=== PATIENT | male | born 2005 | race Caucasian/White ===

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

== ENCOUNTER 2023-05-25 09:42 | Emergency (ER) | payer MEDICAID, SELFPAY ==
[2023-05-25 09:51] VITALS: BP 143/93; PULSE 49; RESP 18; TEMP 36.7; O2SAT 97; BMI 22.8
--- NOTE | 2023-05-25 10:08 | XRR_ITS ---
PROCEDURE INFORMATION: Exam: XR Lumbosacral Spine Exam date and time: 05/25/2023 10:17 AM Age: 17 years old Clinical indication: Injury or trauma; Fall; Blunt trauma (contusions or hematomas); Additional info: Fall with low back pain TECHNIQUE: Imaging protocol: Radiologic exam of the lumbosacral spine. Views: 2 or 3 views. COMPARISON: No relevant prior studies available. FINDINGS: Bones/joints: Spinal alignment is normal. Vertebral body height is maintained. Intervertebral disc height is maintained. There are prominent posterior vertebral osteophytes at the inferior endplate of L4. The inferior endplate of L4 is mildly irregular. Question L4 inferior endplate fracture. Facet joints are normal. There is smooth linear lucency through the posterosuperior margin of the S1 spinous process. Soft tissues: Unremarkable. XR/XR lumbar spine 2-3V* [id number] IMPRESSION: 1. Irregularity of the L4 inferior endplate with prominent posterior vertebral osteophyte or posterior cortical retropulsion. Possible compression fracture of indeterminate age versus Schmorl's node and/or disc degeneration with osteophytes. Consider follow-up CT. 2. Smooth linear lucency through the superior margin of the S1 spinous process. Probable accessory ossification center versus acute fracture. Correlate with the location of tenderness. Consider follow-up CT.
--- NOTE | 2023-05-25 10:08 | XRR_ITS ---
PROCEDURE INFORMATION: Exam: XR Sacrum and Coccyx, 2 or More Views Exam date and time: 05/25/2023 10:17 AM Age: 17 years old Clinical indication: Injury or trauma; Fall; Blunt trauma (contusions or hematomas); Injury date: 5n days ago; Additional info: Fall with tailbone pain TECHNIQUE: Imaging protocol: XR of the sacrum and coccyx, 2 or more views. COMPARISON: No relevant prior studies available. FINDINGS: Bones/joints: Sacrum is intact. SI joints are normal. The visible portions of the lower lumbar spine and pelvis are unremarkable. The coccyx is unremarkable. Soft tissues: Visible soft tissues are unremarkable. XR/XR sacrum coccyx min 2V [id number] IMPRESSION: No acute findings.
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
[2023-05-25] MEDS: ketorolac 60 mg/2 mL INJ IM (10:31)
[2023-05-25] MEDS: methocarbamol 750 mg Tablet PO (10:31)
--- NOTE | 2023-05-25 10:54 | CTR_ITS ---
PROCEDURE INFORMATION: Exam: CT Lumbar Spine Without Contrast Exam date and time: 05/25/2023 11:00 AM Age: 17 years old Clinical indication: Pain and injury or trauma; Fall; Blunt trauma (contusions or hematomas); Low back pain; Injury date: 5 days ago; Additional info: Low back pain and tailbone pain after fall, please include the sacrum on imaging TECHNIQUE: Imaging protocol: Computed tomography of the lumbar spine without contrast. Radiation optimization: All CT scans at this facility use at least one of these dose optimization techniques: automated exposure control; mA and/or kV adjustment per patient size (includes targeted exams where dose is matched to clinical indication); or iterative reconstruction. REPORTING DATA: Count of CT and Cardiac NM exams in prior 12 months: This patient has received 0 known CTs and 0 known cardiac nuclear medicine studies in the 12 months prior to the current study. COMPARISON: CR (PELVIS, ) 05/25/2023 10:17 AM RADIATION DOSE METRICS: Total DLP (mGy-cm): 544.5 FINDINGS: Bones/joints: Spinal alignment is normal. Vertebral body height is maintained. No acute fracture. Severe spinal stenosis at L4-L5. There is a Schmorl's node at the posterior aspect of the inferior endplate of L4. There is an osteophyte at the posterior margin of the inferior L4 endplate which extends 9 mm posteriorly, severely narrowing the spinal canal. There is associated generalized disc bulge at L4-L5. Intervertebral discs are normal at other levels. Facet joints are normal. There is lucency through the posterosuperior margin the S1 spinous process suggesting an accessory ossification center. Soft tissues: Paraspinal soft tissues are unremarkable. CT/CT lumbar spine wo con* [id number] IMPRESSION: 1. No acute fracture. 2. Accessory ossification center or less likely chronic fracture at the tip of the S1 spinous process. 3. Large posterior vertebral osteophyte at the inferior endplate of L4 associated with a disc bulge and Schmorl's node producing severe spinal canal stenosis.
[2023-05-25 11:38] VITALS: BP 132/78; PULSE 54; RESP 14; O2SAT 100
--- NOTE | 2023-05-26 07:56 | DCPLANNER ---
Addendum entered by Elida Vieyra 06/27/23 10:41: Patient did attend appointment Addendum entered by Elida Vieyra 05/27/23 15:14: Patient has a follow up appointment scheduled for June at 10:[address] Duran at ortho. Original Note: verification manager had message to schedule a follow up appointment for patient with ortho. verification manager sent patients information to the front office staff at ortho. Patients information will be printed and reviewed. Clinic will call patient with appointment information.
--- NOTE | 2023-05-26 11:28 | DCPLANNER ---
ar manager called patient due to no primary care physician - no answer at this time.
== END 2023-05-25 12:29 | disposition home or self-care (01) ==
PROVIDERS: Emergency Provider Physician Assistant
DX: M51.36 Other intervertebral disc degeneration, lumbar region (principal)
CPT/HCPCS: 72100; 72131; 72220; 96372; 99284; J1885

== ENCOUNTER → 2023-06-26 10:42 | Outpatient (BNVA) | payer MEDICAID, SELFPAY | PROVIDERS: Visit Provider Orthopaedic Surgery | DX: M54.9 Dorsalgia, unspecified (principal); W17.89XA Other fall from one level to another, initial encounter | CPT/HCPCS: 99204 ==

== ENCOUNTER 2023-07-31 10:21 | Outpatient (CLI) | payer MEDICAID, SELFPAY ==
--- NOTE | 2023-07-31 10:15 | MR_ITS ---
WS: [id number] MRI LUMBAR SPINE NONCONTRAST TECHNIQUE: Sagittal T1, T2 and STIR imaging. Axial T1 and T2 imaging. CLINICAL INFORMATION: M54.9 - Dorsalgia, unspecified COMPARISON: CT lumbar 05/25/2023 FINDINGS: Mild lumbar curve. No acute compression. Disc bulging worse at L4-5 unchanged since the prior CT. L1-L2: Minimal disc bulging. L2-L3: Minimal disc bulging. Spinal canal and foramen are patent. L3-L4: Mild facet arthropathy. Spinal canal and foramen are patent. L4-L5: Shallow central disc protrusion with impingement subarticular recess and traversing L5 nerve r oots bilaterally. Moderate central canal stenosis. Mild facet arthropathy. Small annular fissure. Mil d bilateral foraminal narrowing. L5-S1: Mild annular bulging. Mild facet arthropathy. Slight narrowing of the LEFT subarticular recess . Foramen are patent. Visualized pelvic bony structures: Normal. Paravertebral soft tissues: Normal. IMPRESSION: 1. Shallow central disc protrusion L4-5 with a small annular fissure. Impingement traversing L5 nerv e roots bilaterally with moderate central canal stenosis. 2. Mild bilateral L4-5 foraminal narrowing 3. Slight narrowing of the LEFT L5-S1 subarticular recess. 4. Mild facet arthropathy L3-L4 and L4-L5.
== END 2023-07-31 10:22 | disposition home or self-care (01) ==
PROVIDERS: PCP Orthopaedic Surgery; Visit Provider Orthopaedic Surgery
DX: M51.36 Other intervertebral disc degeneration, lumbar region (principal); M51.26 Other intervertebral disc displacement, lumbar region
CPT/HCPCS: 72148

== ENCOUNTER → 2023-08-26 13:04 | Outpatient (BNVA) | payer MEDICAID, SELFPAY | PROVIDERS: PCP Orthopaedic Surgery; Visit Provider Orthopaedic Surgery | DX: M48.062 Spinal stenosis, lumbar region with neurogenic claudication | CPT/HCPCS: 99214 ==

== ENCOUNTER → 2025-10-10 15:01 | Outpatient (BNVA) | payer OTHER, SELFPAY | PROVIDERS: Family Provider Family Medicine; PCP Family Medicine; Visit Provider Psychiatry & Neurology Psychiatry | DX: Z79.899 Other long term (current) drug therapy (principal) | CPT/HCPCS: 80053; 80061; 80164; 83036; 84443; 85025 ==